=== PATIENT | female | born 1990 | race Caucasian/White ===

== ENCOUNTER → 2021-01-15 | Outpatient (CLI) | payer OTHER | END | disposition home or self-care (01) | LOC: RAD 12:54 | PROVIDERS: ATTEND Radiology Diagnostic Radiology | DX: R07.89 Other chest pain (principal) ==

== ENCOUNTER → 2021-01-26 | Outpatient (CLI) | payer OTHER | END | disposition home or self-care (01) | LOC: SONOGRAMA 08:35 → MAMO-SONO 09:30 | PROVIDERS: ATTEND Radiology Diagnostic Radiology | DX: R10.84 Generalized abdominal pain (principal) ==

== ENCOUNTER 2021-06-07 09:19 | Outpatient (CLI) | payer OTHER | END 2021-06-07 09:24 | disposition home or self-care (01) | LOC: RX STUDY 09:19 | PROVIDERS: ATTEND Obstetrics & Gynecology | DX: N97.8 Female infertility of other origin (principal); E28.310 Symptomatic premature menopause ==

== ENCOUNTER 2022-03-04 11:47 | Outpatient (CLI) | payer OTHER ==
[2022-03-05] MEDS ORDERED: PRENATAL CAPLE1 EAC1 PO (23:28)
[2022-03-05] MEDS ORDERED: INTEGRA PLUS C1 EACH PO (23:29)
== END 2022-03-04 12:05 | disposition home or self-care (01) ==
LOC: NST 11:47 → EDBD 11:47 → NST 12:05
PROVIDERS: ATTEND Obstetrics & Gynecology
DX: Z34.83 Encounter for supervision of other normal pregnancy, third trimester (principal)

== ENCOUNTER 2022-03-05 22:38 | Inpatient (IN) | payer OTHER ==
[~2022-03-05] VITALS: Ht 160 cm; Wt 1.8 kg
[2022-03-05] MEDS ORDERED: PRENATAL CAPLE1 EAC1 PO (23:28)
[2022-03-05] MEDS ORDERED: INTEGRA PLUS C1 EACH PO (23:29)
[2022-03-09] MEDS ORDERED: PRENATAL + DHA1 EAC1 (08:42)
== END 2022-03-10 14:41 | disposition home or self-care (01) | DRG 786 ==
LOC: OBS/DEL 22:38 → LDR 03-06 03:10 → OBS/DEL 03-06 03:10 → EDBD 03-06 03:10 → OB/GYN 03-06 03:10
PROVIDERS: ADMIT Obstetrics & Gynecology; ATTEND Obstetrics & Gynecology
PROC: 4A1HXCZ Monitoring of Products of Conception, Cardiac Rate, External Approach (ICD-10-PCS; 2022-03-06)
PROC: 10D00Z1 Extraction of Products of Conception, Low, Open Approach (ICD-10-PCS; principal; 2022-03-06 07:00)
DX: O32.1XX0 Maternal care for breech presentation, not applicable or unspecified (principal); O60.14X0 Preterm labor third trimester with preterm delivery third trimester, not applicable or unspecified; O42.013 Preterm premature rupture of membranes, onset of labor within 24 hours of rupture, third trimester; Z20.822 Contact with and (suspected) exposure to COVID-19; Z37.0 Single live birth; Z3A.35 35 weeks gestation of pregnancy